=== PATIENT | female | born 1975 | race Caucasian/White ===

== ENCOUNTER 2018-08-03 22:03 | Emergency (ER) | payer SELFPAY ==
[~2018-08-03] VITALS: Ht 160 cm; Wt 66.0 kg
[2018-08-03] MEDS ORDERED: IBUPROFEN 600MG TABLET PO ONE (23:15)
[2018-08-03] MEDS ORDERED: KETOROLAC 30MG/ML VIAL IM ONE (23:15)
[2018-08-03 23:36] VITALS: BP 155/79
== END 2018-08-03 23:36 | disposition left against medical advice (07) ==
LOC: ER 22:03
DX: S29.012A Strain of muscle and tendon of back wall of thorax, initial encounter (principal); Z98.890 Other specified postprocedural states; V49.49XA Driver injured in collision with other motor vehicles in traffic accident, initial encounter; Y93.89 Activity, other specified; Y92.89 Other specified places as the place of occurrence of the external cause; Y99.8 Other external cause status
CPT/HCPCS: 81025; 96372; 99283; J1885